=== PATIENT | female | born 2000 | race American Indian/Alaskan Native ===

== ENCOUNTER 2019-08-06 21:18 | Inpatient (IN) | payer MEDICAID ==
[2019-08-06] MEDS ORDERED: LACTATED RINGERS 1,000 ML ONE (21:38)
[2019-08-06] MEDS ORDERED: ONDANSETRON 4 MG/2 ML INJ IV PRN (21:52)
[2019-08-06] MEDS ORDERED: LANOLIN/ZINC/DIMETHICONE (LANSINOH) 7 GM TP PRN (21:52)
[2019-08-06] MEDS ORDERED: ACETAMINOPHEN 325 MG TAB PO PRN (21:52)
[2019-08-06] MEDS ORDERED: WITCH HAZEL/ GLYCERIN PAD TP PRN (21:52)
[2019-08-06] MEDS ORDERED: PROMETHAZINE 25 MG RECT SUPP PR PRN (21:52)
[2019-08-06] MEDS ORDERED: MAGNESIUM HYDROXIDE (MOM) ORAL LIQD UDC PO PRN (21:52)
[2019-08-06] MEDS ORDERED: diphenhydrAMINE 25 MG CAP PO PRN (21:52)
[2019-08-06] MEDS ORDERED: PROMETHAZINE 25 MG TAB PO PRN (21:52)
[2019-08-06] MEDS: IBUPROFEN 600 MG TAB PO SCH (22:17)
[2019-08-06] MEDS ORDERED: OXYTOCIN 20 UNIT/1000ML DRIP 20 UNITS/1,000 ML BAG IV SCH (23:00)
--- NOTE | 2019-08-06 23:48 | History and Physical Report ---
History of Present Illness Date of examination: 08/06/19 Date of admission: 08/06/19 21:28 Chief complaint: labor History of present illness: 19y/o @ 32+0 weeks presents via EMS after having a delivery of liveborn infant at home. By report, it was stated the placenta also delivered spontaneously. The infant was taken to NICU for further evaluation. Past History Past Medical History: no pertinent history Past Surgical History: no surgical history Social history: single - Obstetrical History : 2 Para: 1 Hx # Term Pregnancies: 0 Number of Pregnancies: 1 Spontaneous Abortions: 0 Induced : 0 Number of Living Children: 1 Medications and Allergies Allergies Allergy/AdvReac Type Severity Reaction Status Date / Time No Known Allergies Allergy Verified 08/06/19 21:56 Home Medications Medication Instructions Recorded Confirmed Last Taken Type hydrOXYzine PAMOATE [Vistaril] 25 mg PO TID PRN 08/06/14 06/16/17 Unknown History lamoTRIgine [LaMICtal] 100 mg PO BID 08/06/14 06/16/17 6 Months Ago History ~12/14/16 risperiDONE [RisperiDONE] 1 mg PO QDAY 08/06/14 06/16/17 6 Months Ago History ~12/14/16 Pnv,Calcium 72/Iron/Folic Acid 1 tab PO QDAY 06/16/17 06/16/17 1 Day Ago History [Pnv Plus Multivit Tab] ~06/15/17 labetaloL [Labetalol 200mg TAB] 200 mg PO BID #60 tablet 06/19/17 Unknown Rx Active Meds: Active Medications Acetaminophen (Tylenol) 650 mg PO Q4H PRN PRN Reason: Pain MILD(1-3)/Fever >100.5/MURPHY Bisacodyl (Dulcolax) 10 mg MN BID PRN PRN Reason: Constipation Diphenhydramine HCl (Benadryl) 25 mg PO Q6H PRN PRN Reason: Itching Oxytocin/Sodium Chloride (Pitocin/Ns 20 Unit/1000ml Drip) 20 units in 1,000 mls @ 0 mls/hr IV DIRECT SASHA Ibuprofen (Ibuprofen) 600 mg PO Q6H SASHA Last Admin: 08/06/19 22:17 Dose: 600 mg Documented by: Magnesium Hydroxide (Milk Of Magnesia) 30 ml PO HS PRN PRN Reason: Constipation Multi-Ingredient Ointment (Lansinoh) 1 applic TP PRN PRN PRN Reason: Sore Nipples Ondansetron HCl (Zofran) 4 mg IV Q8H PRN PRN Reason: Nausea And Vomiting Promethazine HCl (Phenergan) 25 mg MN Q6H PRN PRN Reason: Nausea And Vomiting Promethazine HCl (Phenergan) 25 mg PO Q6H PRN PRN Reason: Nausea And Vomiting Sodium Chloride (Sodium Chloride Flush Syringe 10 Ml) 10 ml IV PRN NR Stop: 08/10/19 21:59 Witch Danica/Glycerin (Tucks Pad) 1 each TP PRN PRN PRN Reason: Hemorrhoid/cleansing/soothing Review of Systems All systems: negative Genitourinary: pelvic pain, contractions - Vital Signs Vital signs: Vital Signs Pulse Pulse Ox 101 H 100 08/06/19 21:30 08/06/19 21:30 Temp Pulse Resp BP Pulse Ox 98.1 F 97 H 16 119/77 99 08/06/19 21:42 08/06/19 23:38 08/06/19 21:42 08/06/19 23:38 08/06/19 22:18 - Physical Exam Breasts: Positive: deferred Cardiovascular: Regular rate Lungs: Positive: Clear to auscultation Abdomen: Positive: normal appearance Results All other labs normal. Assessment and Plan - Patient Problems (1) delivery, delivered Current Visit: Yes Status: Acute Plan to address problem: patient is clinically stable routine care
--- NOTE | 2019-08-07 00:02 | Procedure Note ---
OB Delivery Note - Delivery Date of Delivery: 08/06/19 Surgeon: RODRIGUEZ CARNEY - Vaginal Delivery presentation: vertex Intrapartum events: labor-<37 weeks Delivery monitor: none Route of delivery: Delivery placenta: spontaneous Delivery cord: 3 umbilical vessels Anesthesia: none Delivery comments: Patient had a delivery of a liveborn male infant and weight of 3.3lbs at home. EMS was called. It was noted that the placenta delivered spontaneously. The patient did not sustain any lacerations. - Infant A Gender: Male (weight 3.3lbs)
[2019-08-07 01:24] LABS: Amphetamine Screen,Urine PRESUMPTIVE NEGATIVE; Benzodiazepines Screen,Urine PRESUMPTIVE NEGATIVE; Bilirubin,Urine NEG (Negative); Blood,Urine LG (Negative); Cannabinoid Screen,Urine PRESUMPTIVE NEGATIVE; Cocaine Screen,Urine PRESUMPTIVE NEGATIVE; Color,Urine Red (Yellow); Methadone Screen,Urine PRESUMPTIVE NEGATIVE; Mucus,Urine 1+ /HPF; Opiate Screen,Urine PRESUMPTIVE NEGATIVE; Urobilinogen,Urine < 2.0 mg/dL (<2.0)
[2019-08-07 01:25] LABS: RBC,Urine > 182.0 /HPF (0.0-6.0); WBC,Urine > 182.0 /HPF (0.0-6.0)
[2019-08-07] MEDS: IBUPROFEN 600 MG TAB PO SCH ×3 (06:47→16:00)
--- NOTE | 2019-08-07 11:10 | Progress Note ---
Assessment and Plan - Patient Problems (1) delivery, delivered Current Visit: Yes Status: Acute Plan to address problem: Patient doing well Discharge home tomorrow Subjective - Subjective Date of service: 08/07/19 Interval history: Patient doing well and without complaints. Her pain is controlled and she is tolerating a regular diet Patient reports: appetite normal, voiding normally, pain well controlled Bailey: in NICU Objective - Vital Signs Latest vital signs: Vital Signs Temp Pulse Resp BP BP Pulse Ox 08/07/19 08:25 97.2 F L 79 14 126/101 100 08/07/19 06:47 20 08/07/19 04:30 98.6 F 70 16 114/67 08/07/19 01:00 98.6 F 77 18 102/75 08/07/19 00:30 97.5 F L 89 16 129/81 100 08/07/19 00:25 98.0 F 08/06/19 23:38 97 H 119/77 08/06/19 23:08 100 H 116/78 08/06/19 22:38 100 H 116/80 08/06/19 22:18 102 H 99 08/06/19 22:13 102 H 100 08/06/19 22:08 101 H 99 08/06/19 21:42 98.1 F 100 H 16 123/77 100 08/06/19 21:40 103 H 100 08/06/19 21:35 103 H 100 08/06/19 21:30 101 H 100 Intake and Output 08/06/19 08/07/19 08/07/19 22:59 06:59 14:59 Intake Total 300 Output Total 200 Balance 100 Intake: Intake, Free Water 300 Output: Urine 200 Void 200 Other: Total, Output Amount 200 # Voids Void 1 Weight 79.379 kg - Exam Abdomen: Present: normal appearance, soft Uterus: Present: normal - Labs Labs: Abnormal lab results 08/07/19 Range/Units 00:20 Urine WBC (Auto) > 182.0 H (0.0-6.0) /HPF
--- NOTE | 2019-08-07 11:12 | Discharge Summary ---
Providers - Providers Date of Admission: 08/06/19 21:28 Date of discharge: 08/08/19 Attending physician: RODRIGUEZ CARNEY Primary care physician: MICHELLE ARELLANO MD Hospitalization Reason for admission: labor Delivery: Discharge diagnosis: delivery Hospital course: Patient had a delivery of a 32-week liveborn infant at home. The was transferred to the NICU. The patient's course was uneventful Condition at discharge: Good Disposition: [id number] TO HOME OR SELFCARE - Discharge Diagnoses (1) delivery, delivered Status: Acute Plan - Discharge Medications Prescriptions: Ibuprofen [Motrin] 800 mg PO Q8HR PRN #60 tablet PRN Reason: Pain, Mild (1-3) HYDROcodone/APAP 5-325 [Okay 5/325] 1 each PO Q6HR PRN #20 tablet PRN Reason: Pain - Provider Discharge Summary Activity: no sex for 6 weeks, no heavy lifting 4 weeks, no strenuous exercise Diet: routine Instructions: routine Additional instructions: [] Smoking cessation referral if applicable(refer to patient education folder for contact #) [] Refer to [facility] Booklet Call your doctor immediately for: * Fever > 100.5 * Heavy vaginal bleeding ( >1 pad per hour) * Severe persistent headache * Shortness of breath * Reddened, hot, painful area to leg or breast * Drainage or odor from incision. * Keep incision clean and dry at all times and follow doctor's instructions regarding bathing/showering Schedule visit in 4 weeks - Follow up plan
[2019-08-07 11:13] LABS: Hematocrit 31.5 % (30.3-42.9); Hemoglobin 10.4 gm/dl (10.1-14.3)
[2019-08-08 13:40] VITALS: BP 122/75
== END 2019-08-08 13:30 | disposition home or self-care (01) | DRG 775 ==
LOC: LD 21:28 → OB 08-07 00:37
PROVIDERS: ADMIT Obstetrics & Gynecology; ATTEND Obstetrics & Gynecology
PROC: 10E0XZZ Delivery of Products of Conception, External Approach (ICD-10-PCS; principal; 2019-08-07)
DX: O60.14X0 Preterm labor third trimester with preterm delivery third trimester, not applicable or unspecified (principal); Z3A.32 32 weeks gestation of pregnancy; Z37.0 Single live birth
CPT/HCPCS: 36415; 80307; 81001; 85014; 85018; 86592; 86706; 86762; 86850; 86900; 86901; 87806; G0378; J7120

== ENCOUNTER 2020-02-17 03:52 | Emergency (ER) | payer MEDICAID ==
[2020-02-17 04:44] LABS: Hematocrit 35.1 % (30.3-42.9); Hemoglobin 11.3 gm/dl (10.1-14.3); Mean Corpuscular HGB Conc 32 % (30-34); Mean Corpuscular Volume 75 fl (79-97); Platelet Count 366 K/mm3 (140-440); Red Blood Count 4.66 M/mm3 (3.65-5.03); Red Cell Distribution Width 19.3 % (13.2-15.2)
[2020-02-17 05:16] LABS: Alanine Aminotransferase 8 units/L (7-56); Albumin 4.2 g/dL (3.9-5); BUN/Creatinine Ratio 19; Blood Urea Nitrogen 15 mg/dL (7-17); Hemolysis Index 45
[2020-02-17 06:36] LABS: Bacteria,Urine 4+ /HPF (Negative); Bilirubin,Urine NEG (Negative); Blood,Urine NEG (Negative); Color,Urine Yellow (Yellow); Mucus,Urine 3+ /HPF
[2020-02-17 06:38] LABS: WBC,Urine > 182.0 /HPF (0.0-6.0)
[2020-02-17 06:44] LABS: Anisocytosis 1+; Basophils % (Manual) 0 % (0.0-1.8); Hypochromasia 1+; Total Cells Counted 100
[2020-02-17 06:45] LABS: Platelet Estimate Consistent w Auto
[2020-02-17] MEDS ORDERED: LIDOCAINE-MPF (1%) 10 MG/1 ML VIAL 5 ML INFILTRATI ONE (08:26)
--- NOTE | 2020-02-17 08:29 | Emergency Department Report ---
ED Female HPI - General Chief complaint: Abdominal Pain Stated complaint: PELVIC PAIN Time Seen by Provider: 02/17/20 08:00 Source: patient, EMS Mode of arrival: Ambulatory Limitations: No Limitations - History of Present Illness Initial comments: Patient is a 20-year-old female presents emergency room with complaints of suprapubic abdominal pain that began 3 days ago. She describes that as a intermittent cramping sensation. She states that she also has lower back pain. Patient states that she has had some nausea, pressure upon urination, dysuria, urinary frequency with small amounts of output. She denies any vomiting, diarrhea, fever, vaginal discharge, vaginal itching or burning. She denies any past medical history. No allergies to medications. She states her last menstrual cycle was 02/10/2020. - Related Data Home Medications Medication Instructions Recorded Confirmed Last Taken hydrOXYzine PAMOATE [Vistaril] 25 mg PO TID PRN 08/06/14 08/07/19 Unknown lamoTRIgine [LaMICtal] 100 mg PO BID 08/06/14 08/07/19 6 Months Ago ~12/14/16 risperiDONE [RisperiDONE] 1 mg PO QDAY 08/06/14 08/07/19 6 Months Ago ~12/14/16 Pnv,Calcium 72/Iron/Folic Acid 1 tab PO QDAY 06/16/17 08/07/19 1 Day Ago [Pnv Plus Multivit Tab] ~06/15/17 Previous Rx's Medication Instructions Recorded Last Taken Type labetaloL [Labetalol 200mg TAB] 200 mg PO BID #60 tablet 06/19/17 Unknown Rx HYDROcodone/APAP 5-325 [[place] 1 each PO Q6HR PRN #20 tablet 08/07/19 Unknown Rx 5/325] Ibuprofen [Motrin] 800 mg PO Q8HR PRN #60 tablet 08/07/19 Unknown Rx Naproxen [EC-Naprosyn] 375 mg PO BID PRN #14 tablet. 02/17/20 Unknown Rx Ondansetron [Zofran Odt] 4 mg PO Q8HR PRN #7 tab.rapdis 02/17/20 Unknown Rx cephALEXin [Keflex] 500 mg PO BID 7 Days #14 cap 02/17/20 Unknown Rx Allergies Allergy/AdvReac Type Severity Reaction Status Date / Time No Known Allergies Allergy Verified 08/06/19 21:56 ED Review of Systems ROS: Stated complaint: PELVIC PAIN Other details as noted in HPI Comment: All other systems reviewed and negative ED Past Medical Hx - Past Medical History Hx Hypertension: No Hx Congestive Heart Failure: No Hx Diabetes: No Hx Deep Vein Thrombosis: No Hx Renal Disease: No Hx Sickle Cell Disease: No Hx Seizures: No Hx Psychiatric Treatment: Yes ([facility] [place]) Hx Asthma: No Hx COPD: No Hx HIV: No - Surgical History Past Surgical History?: No - Social History Smoking Status: Never Smoker Substance Use Type: None - Medications Home Medications: Home Medications Medication Instructions Recorded Confirmed Last Taken Type hydrOXYzine PAMOATE [Vistaril] 25 mg PO TID PRN 08/06/14 08/07/19 Unknown History lamoTRIgine [LaMICtal] 100 mg PO BID 08/06/14 08/07/19 6 Months Ago History ~12/14/16 risperiDONE [RisperiDONE] 1 mg PO QDAY 08/06/14 08/07/19 6 Months Ago History ~12/14/16 Pnv,Calcium 72/Iron/Folic Acid 1 tab PO QDAY 06/16/17 08/07/19 1 Day Ago History [Pnv Plus Multivit Tab] ~06/15/17 labetaloL [Labetalol 200mg TAB] 200 mg PO BID #60 tablet 06/19/17 08/07/19 Unknown Rx HYDROcodone/APAP 5-325 [[place] 1 each PO Q6HR PRN #20 tablet 08/07/19 Unknown Rx 5/325] Ibuprofen [Motrin] 800 mg PO Q8HR PRN #60 tablet 08/07/19 Unknown Rx Naproxen [EC-Naprosyn] 375 mg PO BID PRN #14 tablet.dr 02/17/20 Unknown Rx Ondansetron [Zofran Odt] 4 mg PO Q8HR PRN #7 tab.rapdis 02/17/20 Unknown Rx cephALEXin [Keflex] 500 mg PO BID 7 Days #14 cap 02/17/20 Unknown Rx ED Physical Exam - General Limitations: No Limitations General appearance: alert, in no apparent distress - Head Head exam: Present: atraumatic, normocephalic - Eye Eye exam: Present: normal appearance - ENT ENT exam: Present: mucous membranes moist - Respiratory Respiratory exam: Present: normal lung sounds bilaterally. Absent: respiratory distress, wheezes, rales, rhonchi, stridor, chest wall tenderness, accessory muscle use, decreased breath sounds, prolonged expiratory - Cardiovascular Cardiovascular Exam: Present: regular rate, normal rhythm, normal heart sounds. Absent: systolic murmur, diastolic murmur, rubs, gallop - GI/Abdominal GI/Abdominal exam: Present: soft, tenderness (mild suprapubic), normal bowel sounds. Absent: distended, guarding, rebound, rigid - Back Exam Back exam: Absent: CVA tenderness (R), CVA tenderness (L) - Neurological Exam Neurological exam: Present: alert, oriented X3 - Psychiatric Psychiatric exam: Present: normal affect, normal mood - Skin Skin exam: Present: warm, dry, intact ED Course Vital Signs 02/17/20 02/17/20 02/17/20 03:55 07:30 10:06 Temperature 98.5 F 98.6 F Pulse Rate 95 H 68 Respiratory 18 18 16 Rate Blood Pressure 112/93 Blood Pressure 158/98 134/82 [Right] O2 Sat by Pulse 100 100 99 Oximetry 02/17/20 10:07 Temperature Pulse Rate 88 Respiratory 16 Rate Blood Pressure Blood Pressure 134/68 [Right] O2 Sat by Pulse 100 Oximetry ED Medical Decision Making - Lab Data Result diagrams: 02/17/20 04:16 02/17/20 04:16 Lab Results 02/17/20 02/17/20 02/17/20 Range/Units 04:16 04:16 04:16 WBC 9.6 (4.5-11.0) K/mm3 RBC 4.66 (3.65-5.03) M/mm3 Hgb 11.3 (10.1-14.3) gm/dl Hct 35.1 (30.3-42.9) % MCV 75 L (79-97) fl MCH 24 L (28-32) pg MCHC 32 (30-34) % RDW 19.3 H (13.2-15.2) % Plt Count 366 (140-440) K/mm3 Add Manual Diff Complete Total Counted 100 Seg Neuts % (Manual) 74.0 H (40.0-70.0) % Band Neutrophils % 0 % Lymphocytes % (Manual) 15.0 (13.4-35.0) % Reactive Lymphs % (Man) 0 % Monocytes % (Manual) 10.0 H (0.0-7.3) % Eosinophils % (Manual) 1.0 (0.0-4.3) % Basophils % (Manual) 0 (0.0-1.8) % Metamyelocytes % 0 % Myelocytes % 0 % Promyelocytes % 0 % Blast Cells % 0 % Nucleated RBC % Not Reportable Seg Neutrophils # Man 7.1 (1.8-7.7) K/mm3 Band Neutrophils # 0.0 K/mm3 Lymphocytes # (Manual) 1.4 (1.2-5.4) K/mm3 Abs React Lymphs (Man) 0.0 K/mm3 Monocytes # (Manual) 1.0 H (0.0-0.8) K/mm3 Eosinophils # (Manual) 0.1 (0.0-0.4) K/mm3 Basophils # (Manual) 0.0 (0.0-0.1) K/mm3 Metamyelocytes # 0.0 K/mm3 Myelocytes # 0.0 K/mm3 Promyelocytes # 0.0 K/mm3 Blast Cells # 0.0 K/mm3 WBC Morphology Not Reportable Hypersegmented Neuts Not Reportable Hyposegmented Neuts Not Reportable Hypogranular Neuts Not Reportable Smudge Cells Not Reportable Toxic Granulation Not Reportable Toxic Vacuolation Not Reportable Dohle Bodies Not Reportable Pelger-Huet Anomaly Not Reportable Lupillo Rods Not Reportable Platelet Estimate Consistent w auto Clumped Platelets Not Reportable Plt Clumps, EDTA Not Reportable Large Platelets Not Reportable Giant Platelets Not Reportable Platelet Satelliting Not Reportable Plt Morphology Comment Not Reportable RBC Morphology Not Reportable Dimorphic RBCs Not Reportable Polychromasia Not Reportable Hypochromasia 1+ Poikilocytosis Not Reportable Anisocytosis 1+ Microcytosis Few Macrocytosis Not Reportable Spherocytes Not Reportable Pappenheimer Bodies Not Reportable Sickle Cells Not Reportable Target Cells Not Reportable Tear Drop Cells Not Reportable Ovalocytes Not Reportable Helmet Cells Not Reportable Contreras-[place]ado Bodies Not Reportable [place] Rings Not Reportable Charly Cells Not Reportable Bite Cells Not Reportable Crenated Cell Not Reportable Elliptocytes Not Reportable Acanthocytes (Spur) Not Reportable Rouleaux Not Reportable Hemoglobin C Crystals Not Reportable Schistocytes Not Reportable Malaria parasites Not Reportable Maykel Bodies Not Reportable Hem Pathologist Commnt No Sodium 135 L (137-145) mmol/L Potassium 4.2 (3.6-5.0) mmol/L Chloride 97.5 L (98-107) mmol/L Carbon Dioxide 20 L (22-30) mmol/L Anion Gap 22 mmol/L BUN 15 (7-17) mg/dL Creatinine 0.8 (0.6-1.2) mg/dL Estimated GFR > 60 ml/min BUN/Creatinine Ratio 19 % Glucose 90 (65-100) mg/dL Calcium 10.0 (8.4-10.2) mg/dL Total Bilirubin 0.60 (0.1-1.2) mg/dL AST 17 (5-40) units/L ALT 8 (7-56) units/L Alkaline Phosphatase 90 (35-129) units/L Total Protein 8.6 H (6.3-8.2) g/dL Albumin 4.2 (3.9-5) g/dL Albumin/Globulin Ratio 1.0 % HCG, Qual Negative (Negative) Urine Color (Yellow) Urine Turbidity (Clear) Urine pH (5.0-7.0) Ur Specific [place] (1.003-1.030) Urine Protein (Negative) mg/dL Urine Glucose (UA) (Negative) mg/dL Urine Ketones (Negative) mg/dL Urine Blood (Negative) Urine Nitrite (Negative) Urine Bilirubin (Negative) Urine Urobilinogen (<2.0) mg/dL Ur Leukocyte Esterase (Negative) Urine WBC (Auto) (0.0-6.0) /HPF Urine RBC (Auto) (0.0-6.0) /HPF U Epithel Cells (Auto) (0-13.0) /HPF Urine Bacteria (Auto) (Negative) /HPF Urine Mucus /HPF 02/17/20 Range/Units Unknown WBC (4.5-11.0) K/mm3 RBC (3.65-5.03) M/mm3 Hgb (10.1-14.3) gm/dl Hct (30.3-42.9) % MCV (79-97) fl MCH (28-32) pg MCHC (30-34) % RDW (13.2-15.2) % Plt Count (140-440) K/mm3 Add Manual Diff Total Counted Seg Neuts % (Manual) (40.0-70.0) % Band Neutrophils % % Lymphocytes % (Manual) (13.4-35.0) % Reactive Lymphs % (Man) % Monocytes % (Manual) (0.0-7.3) % Eosinophils % (Manual) (0.0-4.3) % Basophils % (Manual) (0.0-1.8) % Metamyelocytes % % Myelocytes % % Promyelocytes % % Blast Cells % % Nucleated RBC % Seg Neutrophils # Man (1.8-7.7) K/mm3 Band Neutrophils # K/mm3 Lymphocytes # (Manual) (1.2-5.4) K/mm3 Abs React Lymphs (Man) K/mm3 Monocytes # (Manual) (0.0-0.8) K/mm3 Eosinophils # (Manual) (0.0-0.4) K/mm3 Basophils # (Manual) (0.0-0.1) K/mm3 Metamyelocytes # K/mm3 Myelocytes # K/mm3 Promyelocytes # K/mm3 Blast Cells # K/mm3 WBC Morphology Hypersegmented Neuts Hyposegmented Neuts Hypogranular Neuts Smudge Cells Toxic Granulation Toxic Vacuolation Dohle Bodies Pelger-Huet Anomaly [place]up[place] Rods Platelet Estimate Clumped Platelets Plt Clumps, EDTA Large Platelets Giant Platelets Platelet Satelliting Plt Morphology Comment RBC Morphology Dimorphic RBCs Polychromasia Hypochromasia Poikilocytosis Anisocytosis Microcytosis Macrocytosis Spherocytes Pappenheimer Bodies Sickle Cells Target Cells Tear Drop Cells Ovalocytes Helmet Cells Contreras-Emerado Bodies [place] Rings Charly Cells Bite Cells Crenated Cell Elliptocytes Acanthocytes (Spur) Rouleaux Hemoglobin C Crystals Schistocytes Malaria parasites Maykel Bodies Hem Pathologist Commnt Sodium (137-145) mmol/L Potassium (3.6-5.0) mmol/L Chloride (98-107) mmol/L Carbon Dioxide (22-30) mmol/L Anion Gap mmol/L BUN (7-17) mg/dL Creatinine (0.6-1.2) mg/dL Estimated GFR ml/min BUN/Creatinine Ratio % Glucose (65-100) mg/dL Calcium (8.4-10.2) mg/dL Total Bilirubin (0.1-1.2) mg/dL AST (5-40) units/L ALT (7-56) units/L Alkaline Phosphatase (35-129) units/L Total Protein (6.3-8.2) g/dL Albumin (3.9-5) g/dL Albumin/Globulin Ratio % HCG, Qual (Negative) Urine Color Yellow (Yellow) Urine Turbidity Cloudy (Clear) Urine pH 6.0 (5.0-7.0) Ur Specific [place] 1.023 (1.003-1.030) Urine Protein 100 mg/dl (Negative) mg/dL Urine Glucose (UA) Neg (Negative) mg/dL Urine Ketones Neg (Negative) mg/dL Urine Blood Neg (Negative) Urine Nitrite Neg (Negative) Urine Bilirubin Neg (Negative) Urine Urobilinogen 4.0 (<2.0) mg/dL Ur Leukocyte Esterase Lg (Negative) Urine WBC (Auto) > 182.0 H (0.0-6.0) /HPF Urine RBC (Auto) 13.0 (0.0-6.0) /HPF U Epithel Cells (Auto) 8.0 (0-13.0) /HPF Urine Bacteria (Auto) 4+ (Negative) /HPF Urine Mucus 3+ /HPF Vital Signs 02/17/20 02/17/20 03:55 07:30 Temperature 98.5 F 98.6 F Pulse Rate 95 H Respiratory 18 87 H Rate Blood Pressure 112/93 Blood Pressure 158/98 [Right] O2 Sat by Pulse 100 100 Oximetry Vital Signs 02/17/20 02/17/20 02/17/20 03:55 07:30 10:06 Temperature 98.5 F 98.6 F Pulse Rate 95 H 68 Respiratory 18 18 16 Rate Blood Pressure 112/93 Blood Pressure 158/98 134/82 [Right] O2 Sat by Pulse 100 100 99 Oximetry 02/17/20 10:07 Temperature Pulse Rate 88 Respiratory 16 Rate Blood Pressure Blood Pressure 134/68 [Right] O2 Sat by Pulse 100 Oximetry - Medical Decision Making Patient is a 20-year-old female presents emergency room with complaints of suprapubic abdominal pain that began 3 days ago. She describes that as a intermittent cramping sensation. She states that she also has lower back pain. Patient states that she has had some nausea, pressure upon urination, dysuria, urinary frequency with small amounts of output. She denies any vomiting, diarrhea, fever, vaginal discharge, vaginal itching or burning. She denies any past medical history. No allergies to medications. She states her last menstrual cycle was 02/10/2020. Vitals are stable. On exam patient has mild suprapubic tenderness palpation, no guarding, no rebound, no rigidity, normal bowel sounds, no peritoneal signs. Labs are stable, very mild dehydration, pat ient is tolerating p.o. intake, encouraged oral intake. UA shows evidence of significant UTI. Patient given 1 g of ceftriaxone while in the emergency department. Discussed all results with patient and answered questions. Patient given prescription for Keflex, naproxen, Zofran. Advised patient Please take medication as prescribed. Please take antibiotics with food and complete your antibiotics. Increase your water intake over the next several days. Please follow-up with a primary care doctor. Please have your primary care doctor repeat your urine for clearance of bacteria. Return to emergency room immediately for any new or worsening symptoms. - Differential Diagnosis UTI, post menstrual cramping, yeast vaginitis, PID, ovarian cyst, fibroids Critical care attestation.: If time is entered above; I have spent that time in minutes in the direct care of this critically ill patient, excluding procedure time. ED Disposition Clinical Impression: Suprapubic cramping Low back pain Qualifiers: Chronicity: acute Back pain laterality: unspecified Sciatica presence: without sciatica Qualified Code(s): M54.5 - Low back pain UTI (urinary tract infection) Qualifiers: Urinary tract infection type: acute cystitis Hematuria presence: without hematuria Qualified Code(s): N30.00 - Acute cystitis without hematuria Disposition: TO HOME OR SELFCARE Is pt being admited?: No Does the pt Need Aspirin: No Condition: Stable Instructions: Urinary Tract Infection in Women (ED), Abdominal Pain (ED) Additional Instructions: Please take medication as prescribed. Please take antibiotics with food and complete your antibiotics. Increase your water intake over the next several days. Please follow-up with a primary care doctor. Please have your primary care doctor repeat your urine for clearance of bacteria. Return to emergency room immediately for any new or worsening symptoms. Prescriptions: Naproxen [EC-Naprosyn] 375 mg PO BID PRN #14 tablet.dr PRIETO Reason: pain cephALEXin [Keflex] 500 mg PO BID 7 Days #14 cap Ondansetron [Zofran Odt] 4 mg PO Q8HR PRN #7 tab.rapdis PRN Reason: Nausea Referrals: PRIMARY CARE, [Primary Care Provider] - 2-3 Days Time of Disposition: 08:28 Print Language: KISWAHILI
[2020-02-17 10:08] VITALS: BP 134/68
== END 2020-02-17 10:07 | disposition home or self-care (01) ==
LOC: ED 03:52
DX: N39.0 Urinary tract infection, site not specified (principal); M54.5 Low back pain; R10.2 Pelvic and perineal pain; Z79.1 Long term (current) use of non-steroidal anti-inflammatories (NSAID); Z79.899 Other long term (current) drug therapy
CPT/HCPCS: 36415; 80053; 81001; 84703; 85007; 85025; 87086; 96372; 99284; J0696

== ENCOUNTER 2020-04-26 10:42 | Emergency (ER) | payer MEDICAID ==
[2020-04-26 11:19] LABS: Basophils % (Auto) 0.3 % (0.0-1.8); Eosinophils % (Auto) 0.7 % (0.0-4.3); Hemoglobin 9.8 gm/dl (10.1-14.3); Lymphocytes # (Auto) 2.5 K/mm3 (1.2-5.4); Lymphocytes % (Auto) 40.8 % (13.4-35.0); Mean Corpuscular HGB Conc 32 % (30-34); Mean Corpuscular Volume 74 fl (79-97); Monocytes # (Auto) 0.8 K/mm3 (0.0-0.8); Monocytes % (Auto) 12.8 % (0.0-7.3); Platelet Count 329 K/mm3 (140-440); Red Blood Count 4.21 M/mm3 (3.65-5.03); Red Cell Distribution Width 18.8 % (13.2-15.2)
[2020-04-26 11:36] LABS: Bacteria,Urine 2+ /HPF (Negative); Bilirubin,Urine NEG (Negative); Blood,Urine NEG (Negative); Color,Urine Yellow (Yellow); Mucus,Urine 3+ /HPF
--- NOTE | 2020-04-26 11:41 | Event Note ---
ED Screening Note ED Screening Note: stomach discomfort increased gas and belching no fever +nausea no v/d PMHx none no allergies to meds LNMP: end march This initial assessment/diagnostic orders/clinical plan/treatment(s) is/are subject to change based on patients health status, clinical progression and re- assessment by fellow clinical providers in the ED. Further treatment and workup at subsequent clinical providers discretion. Patient/guardian urged not to elope from the ED as their condition may be serious if not clinically assessed and managed. Initial orders include: labs, UA
[2020-04-26 11:45] LABS: Alanine Aminotransferase 7 units/L (7-56); Albumin 4.1 g/dL (3.9-5); BUN/Creatinine Ratio 16; Blood Urea Nitrogen 13 mg/dL (7-17); Calcium 9.3 mg/dL (8.4-10.2); Hemolysis Index 0
[2020-04-26] MEDS ORDERED: NITROFURANTOIN MONOHYD/M-CRYST 100 MG CAP PO ONE (13:33)
--- NOTE | 2020-04-26 13:35 | Emergency Department Report ---
HPI - General Chief Complaint: Abdominal Pain Time Seen by Provider: 04/26/20 11:39 - HPI HPI: This is a 20-year-old -[place] female who presents to the emergency department with complaint of a 1 to 2-week history of some intermittent left- sided abdominal pain that she describes as a cramping sensation. There are no known aggravating or alleviating factors. She has not taken anything for symptoms prior to presentation. She has had some occasional nausea and one episode of vomiting, but that has currently resolved. She denies any vaginal bleeding or discharge, dysuria, fever, diarrhea or constipation. Patient follows up with a primary care physician on [place] at a clinic, but has not seen them regarding her symptoms. She denies any past medical history. ED Past Medical Hx - Past Medical History Previous Medical History?: No Hx Hypertension: No Hx Congestive Heart Failure: No Hx Diabetes: No Hx Deep Vein Thrombosis: No Hx Renal Disease: No Hx Sickle Cell Disease: No Hx Seizures: No Hx Psychiatric Treatment: Yes ([facility] [place]) Hx Asthma: No Hx COPD: No Hx HIV: No - Surgical History Past Surgical History?: No - Social History Smoking Status: Never Smoker Substance Use Type: None - Medications Home Medications: Home Medications Medication Instructions Recorded Confirmed Last Taken Type hydrOXYzine PAMOATE [Vistaril] 25 mg PO TID PRN 08/06/14 08/07/19 Unknown History lamoTRIgine [LaMICtal] 100 mg PO BID 08/06/14 08/07/19 6 Months Ago History ~12/14/16 risperiDONE [RisperiDONE] 1 mg PO QDAY 08/06/14 08/07/19 6 Months Ago History ~12/14/16 Pnv,Calcium 72/Iron/Folic Acid 1 tab PO QDAY 06/16/17 08/07/19 1 Day Ago History [Pnv Plus Multivit Tab] ~06/15/17 labetaloL [Labetalol 200mg TAB] 200 mg PO BID #60 tablet 06/19/17 08/07/19 Unknown Rx HYDROcodone/APAP 5-325 [Roann 1 each PO Q6HR PRN #20 tablet 08/07/19 Unknown Rx 5/325] Ibuprofen [Motrin] 800 mg PO Q8HR PRN #60 tablet 08/07/19 Unknown Rx Naproxen [EC-Naprosyn] 375 mg PO BID PRN #14 tablet.dr 02/17/20 Unknown Rx Ondansetron [Zofran Odt] 4 mg PO Q8HR PRN #7 tab.rapdis 02/17/20 Unknown Rx cephALEXin [Keflex] 500 mg PO BID 7 Days #14 cap 02/17/20 Unknown Rx Nitrofurantoin [place]/M-Cryst 100 mg PO Q12HR #14 capsule 04/26/20 Unknown Rx [Macrobid CAP] ED Review of Systems ROS: Stated complaint: STOMACH PAIN/ TEST Other details as noted in HPI Comment: All other systems reviewed and negative Constitutional: denies: chills, fever Respiratory: denies: cough, shortness of breath Cardiovascular: denies: chest pain, palpitations Gastrointestinal: abdominal pain, vomiting (Resolved). denies: diarrhea, constipation Genitourinary: denies: dysuria, discharge Musculoskeletal: denies: back pain, arthralgia Skin: denies: rash, lesions Neurological: denies: headache, weakness Physical Exam - Physical Exam Physical Exam: GENERAL: The patient is well-developed well-nourished. HENT: Normocephalic. Atraumatic. Patient has moist mucous membranes. EYES: Extraocular motions are intact. NECK: Supple. Trachea is midline. CHEST/LUNGS: Clear to auscultation. There is no respiratory distress noted. HEART/CARDIOVASCULAR: Regular. There is no tachycardia. ABDOMEN: Abdomen is soft. Mild left sided abdominal tenderness to palpation. No guarding. Patient has normal bowel sounds. There is no abdominal distention. SKIN: Skin is warm and dry. NEURO: The patient is awake, alert, and oriented. The patient is cooperative. Normal speech. MUSCULOSKELETAL: There is no tenderness or deformity. There is no limitation range of motion. ED Course - Reevaluation(s) Reevaluation #1: 04/26/20 16:19 Lab Results 04/26/20 04/26/20 04/26/20 Range/Units 11:04 11:04 11:04 WBC 6.2 (4.5-11.0) K/mm3 RBC 4.21 (3.65-5.03) M/mm3 Hgb 9.8 L (10.1-14.3) gm/dl Hct 31.0 (30.3-42.9) % MCV 74 L (79-97) fl MCH 23 L (28-32) pg MCHC 32 (30-34) % RDW 18.8 H (13.2-15.2) % Plt Count 329 (140-440) K/mm3 Lymph % (Auto) 40.8 H (13.4-35.0) % [place] % (Auto) 12.8 H (0.0-7.3) % Eos % (Auto) 0.7 (0.0-4.3) % Baso % (Auto) 0.3 (0.0-1.8) % Lymph # (Auto) 2.5 (1.2-5.4) K/mm3 [place] # (Auto) 0.8 (0.0-0.8) K/mm3 Eos # (Auto) 0.0 (0.0-0.4) K/mm3 Baso # (Auto) 0.0 (0.0-0.1) K/mm3 Seg Neutrophils % 45.4 (40.0-70.0) % Seg Neutrophils # 2.8 (1.8-7.7) K/mm3 Sodium 139 (137-145) mmol/L Potassium 3.8 (3.6-5.0) mmol/L Chloride 103.9 (98-107) mmol/L Carbon Dioxide 27 (22-30) mmol/L Anion Gap 12 mmol/L BUN 13 (7-17) mg/dL Creatinine 0.8 (0.6-1.2) mg/dL Estimated GFR > 60 ml/min BUN/Creatinine Ratio 16 % Glucose 89 (65-100) mg/dL Calcium 9.3 (8.4-10.2) mg/dL Total Bilirubin 0.40 (0.1-1.2) mg/dL AST 16 (5-40) units/L ALT 7 (7-56) units/L Alkaline Phosphatase 79 (35-129) units/L Total Protein 7.5 (6.3-8.2) g/dL Albumin 4.1 (3.9-5) g/dL Albumin/Globulin Ratio 1.2 % HCG, Qual Negative (Negative) Urine Color (Yellow) Urine Turbidity (Clear) Urine pH (5.0-7.0) Ur Specific [place] (1.003-1.030) Urine Protein (Negative) mg/dL Urine Glucose (UA) (Negative) mg/dL Urine Ketones (Negative) mg/dL Urine Blood (Negative) Urine Nitrite (Negative) Urine Bilirubin (Negative) Urine Urobilinogen (<2.0) mg/dL Ur Leukocyte Esterase (Negative) Urine WBC (Auto) (0.0-6.0) /HPF Urine RBC (Auto) (0.0-6.0) /HPF U Epithel Cells (Auto) (0-13.0) /HPF Urine Bacteria (Auto) (Negative) /HPF Urine Mucus /HPF /16/ Range/Units 11:11 WBC (4.5-11.0) K/mm3 RBC (3.65-5.03) M/mm3 Hgb (10.1-14.3) gm/dl Hct (30.3-42.9) % MCV (79-97) fl MCH (28-32) pg MCHC (30-34) % RDW (13.2-15.2) % Plt Count (140-440) K/mm3 Lymph % (Auto) (13.4-35.0) % [place] % (Auto) (0.0-7.3) % Eos % (Auto) (0.0-4.3) % Baso % (Auto) (0.0-1.8) % Lymph # (Auto) (1.2-5.4) K/mm3 [place] # (Auto) (0.0-0.8) K/mm3 Eos # (Auto) (0.0-0.4) K/mm3 Baso # (Auto) (0.0-0.1) K/mm3 Seg Neutrophils % (40.0-70.0) % Seg Neutrophils # (1.8-7.7) K/mm3 Sodium (137-145) mmol/L Potassium (3.6-5.0) mmol/L Chloride (98-107) mmol/L Carbon Dioxide (22-30) mmol/L Anion Gap mmol/L BUN (7-17) mg/dL Creatinine (0.6-1.2) mg/dL Estimated GFR ml/min BUN/Creatinine Ratio % Glucose (65-100) mg/dL Calcium (8.4-10.2) mg/dL Total Bilirubin (0.1-1.2) mg/dL AST (5-40) units/L ALT (7-56) units/L Alkaline Phosphatase (35-129) units/L Total Protein (6.3-8.2) g/dL Albumin (3.9-5) g/dL Albumin/Globulin Ratio % HCG, Qual (Negative) Urine Color Yellow (Yellow) Urine Turbidity Cloudy (Clear) Urine pH 6.0 (5.0-7.0) Ur Specific [place] 1.025 (1.003-1.030) Urine Protein 30 mg/dl (Negative) mg/dL Urine Glucose (UA) Neg (Negative) mg/dL Urine Ketones Neg (Negative) mg/dL Urine Blood Neg (Negative) Urine Nitrite Neg (Negative) Urine Bilirubin Neg (Negative) Urine Urobilinogen 2.0 (<2.0) mg/dL Ur Leukocyte Esterase Mod (Negative) Urine WBC (Auto) 123.0 H (0.0-6.0) /HPF Urine RBC (Auto) 4.0 (0.0-6.0) /HPF U Epithel Cells (Auto) 12.0 (0-13.0) /HPF Urine Bacteria (Auto) 2+ (Negative) /HPF Urine Mucus 3+ /HPF ED Medical Decision Making - Lab Data Result diagrams: 04/26/20 11:04 04/26/20 11:04 - Radiology Data Radiology results: image reviewed interpreted by me: Abdominal x-ray shows nonspecific nonobstructive bowel gas. - Medical Decision Making This patient presents to the emergency department with complaint of a 1 to 2- week history of some left-sided abdominal pain that she describes as intermittent and cramping. The labs are mostly unremarkable except for a significant urinary tract infection. No leukocytosis, renal insufficiency. The patient is not . Abdominal x-ray shows nonspecific nonobstructive bowel gas. On examination there is some mild left-sided reproducible abdominal tenderness to palpation. However the abdomen is soft, nondistended and nontoxic in appearance. Her vital signs have been reassuring throughout her ED course including being afebrile. The patient will be discharged home on Macrobid for urinary tract infection. She has been instructed to follow-up with her PCP and to return to the ER with any worsening of her symptoms or with any acute distress. Critical Care Time: No Critical care attestation.: If time is entered above; I have spent that time in minutes in the direct care of this critically ill patient, excluding procedure time. ED Disposition Clinical Impression: Abdominal pain Qualifiers: Abdominal location: unspecified location Qualified Code(s): R10.9 - Unspecified abdominal pain UTI (urinary tract infection) Qualifiers: Urinary tract infection type: acute cystitis Hematuria presence: without hematuria Qualified Code(s): N30.00 - Acute cystitis without hematuria Disposition: TO HOME OR SELFCARE Is pt being admited?: No Condition: Stable Instructions: Abdominal Pain, Adult, Urinary Tract Infection, Adult, Abdominal Pain (ED) Additional Instructions: Please follow-up with your primary care physician in the next few days. Take your medications as prescribed. Return to the emergency department with any worsening of your symptoms, new or concerning symptoms not addressed during this current emergency department visit, or with any acute distress. Prescriptions: Nitrofurantoin [place]/M-Cryst [Macrobid CAP] 100 mg PO Q12HR #14 capsule Referrals: PRIMARY CAREMD [Primary Care Provider] - 2-3 Days Time of Disposition: 14:16
--- NOTE | 2020-04-26 14:02 | XRay Report ---
ABDOMEN 3 VIEW(S) INDICATION / CLINICAL INFORMATION: Abd pain. COMPARISON: None available. FINDINGS: TUBES / LINES: None. BOWEL GAS PATTERN: No significant abnormality. FREE AIR / EXTRALUMINAL GAS: None seen. ADDITIONAL FINDINGS: No significant additional findings. IMPRESSION: 1. No significant abnormality. Signer Name: Isael Tyler MD Signed: 04/26/2020 1:57 PM Workstation Name: Front Desk [id number]
[2020-04-26 14:25] VITALS: BP 130/93
== END 2020-04-26 14:54 | disposition home or self-care (01) ==
LOC: ED 10:42
DX: N39.0 Urinary tract infection, site not specified (principal); R10.9 Unspecified abdominal pain; Z79.899 Other long term (current) drug therapy
CPT/HCPCS: 36415; 74019; 80053; 81001; 84703; 85025

== ENCOUNTER 2022-01-19 10:18 | Emergency (ER) | payer MEDICAID ==
[2022-01-19 10:30] VITALS: BP 154/95
--- NOTE | 2022-01-19 11:03 | XRay Report ---
Right ankle 3 views INDICATION: Injury FINDINGS: Swelling in the lateral ankle. Talar dome appears intact. Calcaneus and talus appear normal . IMPRESSION: No acute findings. Signer Name: Valente Cho MD Signed: 01/19/2022 10:59 AM Workstation Name: [id number]
== END 2022-01-19 14:32 | disposition left against medical advice (07) ==
LOC: ED 10:18
DX: M25.571 Pain in right ankle and joints of right foot (principal); Z53.21 Procedure and treatment not carried out due to patient leaving prior to being seen by health care provider